=== PATIENT | female | born 1980 | race Caucasian/White ===

== ENCOUNTER 2017-07-21 13:00 | Day surgery (SDC) | payer OTHER, MEDICAID ==
[~2017-07-21 13:00] MED LIST: CEFAZOLIN 1 GM INJ; METOCLOPRAMIDE 10 MG INJ; ONDANSETRON 4 MG INJ; SUGAMMADEX SODIUM 200 MG/2 ML VIAL IV
[2017-07-21] MEDS ORDERED: SOD CHLORIDE 0.9% 1,000 ML IV (13:30)
[2017-07-21] MEDS ORDERED: CEFAZOLIN 2 GM/50 ML (PMX) 50 ML IVPB (13:30)
[2017-07-21] MEDS ORDERED: FENTAnyl 50 MCG/ML VIAL (14:25)
[2017-07-21] MEDS ORDERED: MIDAZOLAM 1 MG/ML 2 ML INJ ×2 (14:25→15:08)
[2017-07-21] MEDS ORDERED: PROPOFOL 20 ML (14:28)
[2017-07-21] MEDS ORDERED: ROCURONIUM 50 MG INJ (14:29)
[2017-07-21] MEDS ORDERED: SUCCINYLCHOLINE CHLORIDE 100 MG/5 ML SYG IV ×2 (14:29→14:39)
[2017-07-21] MEDS ORDERED: BUPIVACAINE 0.25% (MPF) 30 ML INJ (14:42)
[2017-07-21] MEDS: BUPIVACAINE 0.25% (MPF) 30 ML INJ INJ (15:24)
[2017-07-21] MEDS ORDERED: HYDROmorphONE (0.2 MG/ML) 10ML SYG IV ×3 (16:08→16:30)
[2017-07-21] MEDS: HYDROmorphONE (0.2 MG/ML) 10ML SYG IV (16:30)
[2017-07-21] MEDS: HYDROCODONE/APAP (5/325) TAB PO (16:44)
[2017-07-21] MEDS: ONDANSETRON 4 MG INJ IV (17:23)
== END 2017-07-21 17:48 | disposition home or self-care (01) ==
LOC: SDS 13:00
DX: K80.10 Calculus of gallbladder with chronic cholecystitis without obstruction (principal)
CPT/HCPCS: 47562; 88304